=== PATIENT | male | born 1945 | race Caucasian/White ===

== ENCOUNTER → 2018-03-04 | Outpatient (CLI) | payer MEDICARE | END | disposition home or self-care (01) | LOC: LAB EV 21:00 | DX: R19.7 Diarrhea, unspecified (principal) | CPT/HCPCS: 87015; 87045; 87046; 87205; 87338; 87493; 87899 ==

== ENCOUNTER 2018-12-22 23:36 | Emergency (ER) | payer MEDICARE ==
[~2018-12-22] VITALS: Ht 175.3 cm; Wt 81.7 kg
[2018-12-23] MEDS ORDERED: GLIM2 PO (00:09)
[2018-12-23 00:34] LABS: BASOPHILS ABSOLUTE AUTO 0.05 K/mm3 (0.00-0.23); BASOPHILS PERCENT AUTO 1 % (0-2); EOSINOPHILS ABSOLUTE AUTO 0.22 K/mm3 (0.00-0.68); EOSINOPHILS PERCENT AUTO 3 % (0-6); Hematocrit 42.7 % (37.0-53.0); Hemoglobin 14.1 g/dL (13.5-17.5); IMMATURE GRAN ABSOLUTE AUTO 0.02 K/mm3 (0.00-0.10); IMMATURE GRAN PERCENT AUTO 0 % (0-1); LYMPHOCYTES ABSOLUTE AUTO 3.11 K/mm3 (0.84-5.20); LYMPHOCYTES PERCENT AUTO 38 % (21-46); MONOCYTES ABSOLUTE AUTO 0.94 K/mm3 (0.16-1.47); MONOCYTES PERCENT AUTO 12 % (4-13); Mean Corpuscular Volume 91 fL (80-100); Mean Platelet Volume 9.9 fL (9.1-12.4); NEUTROPHILS ABSOLUTE AUTO 3.78 K/mm3 (1.96-9.15); NEUTROPHILS PERCENT AUTO 47 % (41-73); Platelet Count 300 K/mm3 (150-400); RDW Coefficient Variation 13.2 % (11.7-14.2); RDW Standard Deviation 44.1 fL (35.1-46.3); White Blood Cell Count 8.12 K/mm3 (4.00-11.30)
[2018-12-23 00:43] LABS: Source, Urine Clean Catch
[2018-12-23 00:45] LABS: Bilirubin, Urine Neg (Neg); Blood, Urine 2+ (Neg); Glucose Qualitative, Urine Neg (Neg); Ketones, Urine Neg (Neg); Leukocyte Esterase, Urine Neg (Neg); Nitrite, Urine Neg (Neg); Protein, Urine Neg (Neg); Specific Gravity, Urine 1.015 (1.003-1.022); Urobilinogen, Urine 1+ (Normal)
[2018-12-23 00:49] LABS: Appearance, Urine Clear (Clear); Color, Urine Yellow (P-Yellow)
[2018-12-23 00:51] LABS: Alanine Aminotransfer (ALT/SGP 25 U/L (12-78); Albumin, Blood 4.2 g/dL (3.4-5.0); Albumin/Globulin Ratio 1.2 (0.8-1.8); Alk Phos 49 U/L (50-136); Anion Gap 12 mmol/L (6-16); Aspartate Aminotrans (AST/SGOT 12 U/L (12-37); Bilirubin, Total 0.4 mg/dL (0.1-1.0); Blood Urea Nitrogen 25 mg/dL (8-24); Bun/Creatinine Ratio 24.5 (12.0-20.0); CO2, Blood 23 mmol/L (21-32); Calcium, Blood 9.4 mg/dL (8.5-10.1); Chloride, Blood 106 mmol/L (98-108); Creatinine, Blood 1.02 mg/dL (0.60-1.20); Globulin, Blood 3.5 g/dL (2.2-4.0); Glomerular Filtration Rate >60 (60-); Glucose, Blood 164 mg/dL (70-99); Potassium, Blood 4.3 mmol/L (3.5-5.5); Sodium, Blood 141 mmol/L (136-145); Total Protein, Blood 7.7 g/dL (6.4-8.2)
[2018-12-23 00:53] LABS: Bacteria Few /hpf; Calcium Oxalate Crystals Few /hpf; Squamous Epithelial Cells Not Seen /hpf (Few); White Blood Cells, Urine 0-2 /hpf (0-5)
[2018-12-23] MEDS ORDERED: Flomax0.4 MG PO (02:07)
[2018-12-23] MEDS ORDERED: ONDA4ODT MM (02:07)
[2018-12-23] MEDS ORDERED: Percocet 5-3251 EACH PO (02:07)
== END 2018-12-23 02:20 | disposition home or self-care (01) ==
LOC: ER 23:36
PROVIDERS: Physician Assistant
DX: N13.2 Hydronephrosis with renal and ureteral calculous obstruction (principal); Z88.8 Allergy status to other drugs, medicaments and biological substances; Z79.899 Other long term (current) drug therapy; E11.9 Type 2 diabetes mellitus without complications
CPT/HCPCS: 36415; 74176; 80053; 81001; 83690; 85025; 96374; 96375; 96376; 99284-25; A9270-GY; J1170; J2405

== ENCOUNTER → 2019-02-04 | Outpatient (CLI) | payer MEDICARE ==
[~2019-02-04] MED LIST: Flomax0.4 MG PO; GLIM2 PO; ONDA4ODT MM; Percocet 5-3251 EACH PO
== END | disposition home or self-care (01) ==
LOC: LAB SRC 12:45 → LAB SHORT 12:45
DX: E11.65 Type 2 diabetes mellitus with hyperglycemia (principal)
CPT/HCPCS: 82043

== ENCOUNTER → 2019-11-05 | Outpatient (CLI) | payer MEDICARE ==
[2019-11-05 15:40] LABS: Bilirubin, Urine Neg (Neg); Blood, Urine 5+ (Neg); Glucose Qualitative, Urine 4+ (Neg); Ketones, Urine Neg (Neg); Leukocyte Esterase, Urine Neg (Neg); Nitrite, Urine Neg (Neg); Protein, Urine 1+ (Neg); Specific Gravity, Urine 1.025 (1.003-1.022); Urobilinogen, Urine NORM (Normal)
[2019-11-05 15:53] LABS: Appearance, Urine Turbid (Clear); Color, Urine Yellow (P-Yellow)
[2019-11-05 15:54] LABS: White Blood Cells, Urine 0-2 /hpf (0-5)
[2019-11-05 15:55] LABS: Amorphous Heavy (0-Heavy); Bacteria Few /hpf; Calcium Oxalate Crystals Few /hpf; Red Blood Cells, Urine 25-50 /hpf (0-2); Squamous Epithelial Cells Few /hpf (Few)
== END | disposition home or self-care (01) ==
LOC: LAB 14:05 → LAB SHORT 14:05
PROVIDERS: Family Medicine
DX: N50.819 Testicular pain, unspecified (principal)
CPT/HCPCS: 81001

== ENCOUNTER 2022-05-14 05:04 | Emergency (ER) | payer MEDICARE ==
[~2022-05-14] VITALS: Ht 177.8 cm; Wt 77.1 kg
[2022-05-14 06:19] LABS: Source, Urine Clean Catch
[2022-05-14 06:32] LABS: BASOPHILS ABSOLUTE AUTO 0.03 K/mm3 (0.00-0.23); BASOPHILS PERCENT AUTO 0 % (0-2); EOSINOPHILS ABSOLUTE AUTO 0.01 K/mm3 (0.00-0.68); EOSINOPHILS PERCENT AUTO 0 % (0-6); Hemoglobin 14.2 g/dL (13.5-17.5); IMMATURE GRAN ABSOLUTE AUTO 0.04 K/mm3 (0.00-0.10); IMMATURE GRAN PERCENT AUTO 0 % (0-1); LYMPHOCYTES ABSOLUTE AUTO 0.81 K/mm3 (0.84-5.20); LYMPHOCYTES PERCENT AUTO 9 % (21-46); MONOCYTES ABSOLUTE AUTO 0.32 K/mm3 (0.16-1.47); MONOCYTES PERCENT AUTO 4 % (4-13); Mean Corpuscular HGB 29.5 pg (26.0-34.0); Mean Corpuscular HGB Conc 33.8 g/dL (31.5-36.5); Mean Corpuscular Volume 87 fL (80-100); Mean Platelet Volume 9.6 fL (9.1-12.4); NEUTROPHILS ABSOLUTE AUTO 7.97 K/mm3 (1.96-9.15); NEUTROPHILS PERCENT AUTO 87 % (41-73); Platelet Count 289 K/mm3 (150-400); RDW Coefficient Variation 12.5 % (11.7-14.2); Red Blood Cell Count 4.82 M/mm3 (4.30-5.90); White Blood Cell Count 9.18 K/mm3 (4.00-11.30)
[2022-05-14 06:38] LABS: Appearance, Urine Clear (Clear); Bilirubin, Urine Neg (Neg); Blood, Urine 1+ (Neg); Color, Urine Yellow (P-Yellow); Glucose Qualitative, Urine 4+ (Neg); Ketones, Urine 4+ (Neg); Leukocyte Esterase, Urine Neg (Neg); Nitrite, Urine Neg (Neg); Protein, Urine 1+ (Neg); Specific Gravity, Urine 1.025 (1.003-1.022); Urobilinogen, Urine NORM (Normal)
[2022-05-14 06:42] LABS: Albumin, Blood 4.1 g/dL (3.4-5.0); Albumin/Globulin Ratio 1.1 (0.8-1.8); Bilirubin, Total 0.8 mg/dL (0.1-1.0); Calcium, Blood 8.7 mg/dL (8.5-10.1); Creatinine, Blood 0.88 mg/dL (0.60-1.20); Globulin, Blood 3.8 g/dL (2.2-4.0); Total Protein, Blood 7.9 g/dL (6.4-8.2)
[2022-05-14 07:01] LABS: Bacteria Rare /hpf; Red Blood Cells, Urine 0-2 /hpf (0-2); Squamous Epithelial Cells Rare /hpf (Few); White Blood Cells, Urine 0-2 /hpf (0-5)
[2022-05-14] MEDS ORDERED: DOC250 PO (11:03)
[2022-05-14] MEDS ORDERED: ONDA4ODT MM (11:03)
== END 2022-05-14 11:38 | disposition home or self-care (01) ==
LOC: ER 05:04
PROVIDERS: Student in an Organized Health Care Education/Training Program
DX: R11.2 Nausea with vomiting, unspecified (principal); R10.31 Right lower quadrant pain; K59.00 Constipation, unspecified; Z79.84 Long term (current) use of oral hypoglycemic drugs; Z79.899 Other long term (current) drug therapy; Z88.6 Allergy status to analgesic agent
CPT/HCPCS: 36415; 71045; 74176; 80053; 81001; 84484; 85025; 93005; 93010; A9270; J2405; J2765; J3010; J7030

== ENCOUNTER 2022-05-16 09:01 | Emergency (ER) | payer MEDICARE ==
[~2022-05-16] VITALS: Ht 175.3 cm; Wt 81.7 kg
[~2022-05-16 09:01] MED LIST changes: +DOC250 PO
[2022-05-16 09:54] LABS: BASOPHILS ABSOLUTE AUTO 0.02 K/mm3 (0.00-0.23); BASOPHILS PERCENT AUTO 0 % (0-2); EOSINOPHILS ABSOLUTE AUTO 0.02 K/mm3 (0.00-0.68); EOSINOPHILS PERCENT AUTO 0 % (0-6); Hematocrit 44.7 % (37.0-53.0); Hemoglobin 15.2 g/dL (13.5-17.5); IMMATURE GRAN ABSOLUTE AUTO 0.06 K/mm3 (0.00-0.10); IMMATURE GRAN PERCENT AUTO 1 % (0-1); LYMPHOCYTES ABSOLUTE AUTO 1.09 K/mm3 (0.84-5.20); LYMPHOCYTES PERCENT AUTO 9 % (21-46); MONOCYTES ABSOLUTE AUTO 1.44 K/mm3 (0.16-1.47); MONOCYTES PERCENT AUTO 12 % (4-13); Mean Corpuscular HGB 29.3 pg (26.0-34.0); Mean Corpuscular Volume 86 fL (80-100); Mean Platelet Volume 9.8 fL (9.1-12.4); NEUTROPHILS ABSOLUTE AUTO 9.82 K/mm3 (1.96-9.15); NEUTROPHILS PERCENT AUTO 79 % (41-73); Platelet Count 326 K/mm3 (150-400); RDW Coefficient Variation 12.7 % (11.7-14.2); RDW Standard Deviation 39.8 fL (35.1-46.3); Red Blood Cell Count 5.19 M/mm3 (4.30-5.90); White Blood Cell Count 12.45 K/mm3 (4.00-11.30)
[2022-05-16 10:13] LABS: Magnesium, Blood 2.5 mg/dL (1.6-2.4)
[2022-05-16 10:14] LABS: Albumin, Blood 3.6 g/dL (3.4-5.0); Bilirubin, Total 0.8 mg/dL (0.1-1.0); Bun/Creatinine Ratio 21.4 (12.0-20.0); Calcium, Blood 8.6 mg/dL (8.5-10.1); Creatinine, Blood 1.03 mg/dL (0.60-1.20); Globulin, Blood 3.7 g/dL (2.2-4.0); Potassium, Blood 4.2 mmol/L (3.5-5.5); Total Protein, Blood 7.3 g/dL (6.4-8.2)
[2022-05-16] MEDS ORDERED: METO25 PO (13:04)
== END 2022-05-16 13:44 | disposition home or self-care (01) ==
LOC: ER 09:01
PROVIDERS: Student in an Organized Health Care Education/Training Program
DX: I48.91 Unspecified atrial fibrillation (principal); E11.9 Type 2 diabetes mellitus without complications; Z79.84 Long term (current) use of oral hypoglycemic drugs; Z87.891 Personal history of nicotine dependence; Z88.6 Allergy status to analgesic agent
CPT/HCPCS: 36415; 71045; 80053; 83735; 83880; 84484; 85025; A9270; J7030

== ENCOUNTER 2023-01-19 03:44 | Observation (INO) | payer MEDICARE ==
[~2023-01-19] VITALS: Ht 170.2 cm; Wt 85.0 kg
[~2023-01-19 03:44] MED LIST changes: +METO25 PO
[2023-01-19 04:03] LABS: BASOPHILS ABSOLUTE AUTO 0.07 K/mm3 (0.00-0.23); BASOPHILS PERCENT AUTO 1 % (0-2); EOSINOPHILS ABSOLUTE AUTO 0.29 K/mm3 (0.00-0.68); EOSINOPHILS PERCENT AUTO 4 % (0-6); Hematocrit 40.9 % (37.0-53.0); Hemoglobin 13.6 g/dL (13.5-17.5); IMMATURE GRAN ABSOLUTE AUTO 0.03 K/mm3 (0.00-0.10); IMMATURE GRAN PERCENT AUTO 0 % (0-1); LYMPHOCYTES ABSOLUTE AUTO 3.33 K/mm3 (0.84-5.20); LYMPHOCYTES PERCENT AUTO 42 % (21-46); MONOCYTES ABSOLUTE AUTO 0.92 K/mm3 (0.16-1.47); MONOCYTES PERCENT AUTO 12 % (4-13); Mean Corpuscular HGB 29.6 pg (26.0-34.0); Mean Corpuscular HGB Conc 33.3 g/dL (31.5-36.5); Mean Corpuscular Volume 89 fL (80-100); Mean Platelet Volume 9.5 fL (9.1-12.4); NEUTROPHILS ABSOLUTE AUTO 3.37 K/mm3 (1.96-9.15); NEUTROPHILS PERCENT AUTO 42 % (41-73); Platelet Count 294 K/mm3 (150-400); RDW Coefficient Variation 13.2 % (11.7-14.2); RDW Standard Deviation 42.9 fL (35.1-46.3); White Blood Cell Count 8.01 K/mm3 (4.00-11.30)
[2023-01-19 04:20] LABS: Alanine Aminotransfer (ALT/SGP 25 U/L (12-78); Albumin, Blood 3.8 g/dL (3.4-5.0); Albumin/Globulin Ratio 1.1 (0.8-1.8); Alk Phos 44 U/L (50-136); Anion Gap 4 mmol/L (6-16); Aspartate Aminotrans (AST/SGOT 16 U/L (12-37); Bilirubin, Total 0.2 mg/dL (0.1-1.0); Blood Urea Nitrogen 22 mg/dL (8-24); Bun/Creatinine Ratio 21.4 (12.0-20.0); CO2, Blood 26 mmol/L (21-32); Calcium, Blood 9.5 mg/dL (8.5-10.1); Chloride, Blood 108 mmol/L (98-108); Creatinine, Blood 1.03 mg/dL (0.60-1.20); Ethanol (Alcohol), Blood, Med <3 mg/dL; Globulin, Blood 3.6 g/dL (2.2-4.0); Glomerular Filtration Rate 75 (60-); Glucose, Blood 142 mg/dL (70-99); Potassium, Blood 4.1 mmol/L (3.5-5.5); Sodium, Blood 138 mmol/L (136-145); Total Protein, Blood 7.4 g/dL (6.4-8.2)
[2023-01-19 06:53] VITALS: BP 168/84
[2023-01-19] MEDS ORDERED: GLIP2.5ER PO (08:07)
[2023-01-19 09:28] LABS: Source, Urine Clean Catch
[2023-01-19 09:32] LABS: Appearance, Urine Clear (Clear); Bilirubin, Urine Neg (Neg); Blood, Urine Neg (Neg); Color, Urine Yellow (P-Yellow); Glucose Qualitative, Urine Neg (Neg); Ketones, Urine Neg (Neg); Leukocyte Esterase, Urine Neg (Neg); Nitrite, Urine Neg (Neg); Protein, Urine Neg (Neg); Specific Gravity, Urine 1.015 (1.003-1.022); Urobilinogen, Urine NORM (Normal)
[2023-01-19 16:49] VITALS: BP 155/77
--- NOTE | 2023-01-19 17:59 | NUR ---
SHIFT SUMMARY: PT A&O X4. PT MOSTLY PLEASANT THIS SHIFT. PT ANXIOUS AND ANGRY THIS AFTERNOON DUE TO "NOT GETTING ANYTHING DONE." PHYSICAL THERAPY REFUSED TO SEE PT DUE TO HYPERTENSION AND NOT WANTING TO MAKE MATTERS WORSE. THIS RN WAS NOT NOTIFIED BY PHYSICAL THERAPY AND PT DID NOT RECEIVE PT EVAL. PT UPSET BY THIS AND ATTEMPTING TO GET OUT OF BED TO LEAVE AMA. DR. MCMAHON TALKED TO PT AND WAS ABLE TO RELAX AND WAIT UNTIL TOMORROW TO RECEIVE PT/OT EVAL. D/C MEDICATIONS IN D/C PACKET. NECK AND HEAD CTA RESULTS IN [facility]. PT GIVEN RESULTS BY DR. MCMAHON WHO STARTED PT ON ANTICOAGULANTS AND STRONGLY RECOMMENDED PT STAY UNTIL PT EVAL DONE. PT ABLE TO STAND WITH DOCTOR AND THIS RN AT BEDSIDE. PT DIZZY AND UNSTEADY ON FEET. PT AWARE IF WANTING TO LEAVE AMA HE WOULD NEED TO RETURN TO ER IF SYMPTOMS ARISE. PT IN BEDSIDE THROUGHOUT DAY. BROUGHT IN HOME MEDICATIONS WHICH INCLUDED METOPROLOL, GLIPIZIDE, AND HERBAL MEDICATIONS. PT STRONGLY ADVISED TO D/C GLIPIZIDE. PT CURRENTLY PLEASANT EATING DINNER IN BED W/O COMPLAINTS. CALL LIGHT IN REACH. BED IN LOWEST POSITION. WILL CONTINUE TO MONITOR.
[2023-01-19 19:46] VITALS: BP 155/78
[2023-01-20 05:02] LABS: BASOPHILS ABSOLUTE AUTO 0.04 K/mm3 (0.00-0.23); BASOPHILS PERCENT AUTO 1 % (0-2); EOSINOPHILS ABSOLUTE AUTO 0.16 K/mm3 (0.00-0.68); EOSINOPHILS PERCENT AUTO 3 % (0-6); Hematocrit 40.1 % (37.0-53.0); Hemoglobin 13.6 g/dL (13.5-17.5); IMMATURE GRAN ABSOLUTE AUTO 0.01 K/mm3 (0.00-0.10); IMMATURE GRAN PERCENT AUTO 0 % (0-1); LYMPHOCYTES ABSOLUTE AUTO 1.62 K/mm3 (0.84-5.20); LYMPHOCYTES PERCENT AUTO 28 % (21-46); MONOCYTES ABSOLUTE AUTO 0.66 K/mm3 (0.16-1.47); MONOCYTES PERCENT AUTO 12 % (4-13); Mean Corpuscular HGB 29.4 pg (26.0-34.0); Mean Corpuscular HGB Conc 33.9 g/dL (31.5-36.5); Mean Corpuscular Volume 87 fL (80-100); Mean Platelet Volume 9.2 fL (9.1-12.4); NEUTROPHILS ABSOLUTE AUTO 3.24 K/mm3 (1.96-9.15); NEUTROPHILS PERCENT AUTO 57 % (41-73); Platelet Count 254 K/mm3 (150-400); RDW Coefficient Variation 13.2 % (11.7-14.2); RDW Standard Deviation 41.6 fL (35.1-46.3); Red Blood Cell Count 4.62 M/mm3 (4.30-5.90); White Blood Cell Count 5.73 K/mm3 (4.00-11.30)
[2023-01-20 05:22] LABS: Albumin, Blood 3.7 g/dL (3.4-5.0); Albumin/Globulin Ratio 1.1 (0.8-1.8); Bilirubin, Total 0.5 mg/dL (0.1-1.0); Bun/Creatinine Ratio 19.2 (12.0-20.0); Calcium, Blood 8.9 mg/dL (8.5-10.1); Creatinine, Blood 0.99 mg/dL (0.60-1.20); Globulin, Blood 3.4 g/dL (2.2-4.0); Potassium, Blood 4.2 mmol/L (3.5-5.5); Total Protein, Blood 7.1 g/dL (6.4-8.2)
[2023-01-20 07:10] VITALS: BP 157/85
[2023-01-20] MEDS ORDERED: METO25 PO (12:22)
[2023-01-20] MEDS ORDERED: CLOP75 PO (12:23)
[2023-01-20] MEDS ORDERED: ASPI81CH PO (12:23)
[2023-01-20] MEDS ORDERED: ATOR40TA PO (12:23)
--- NOTE | 2023-01-20 13:04 | NUR ---
DISCHARGE SUMMARY PATIENT IS ALERT AND ORIENTED. PATIENT HAS HAD NO ACUTE EVENTS THIS SHIFT. VITAL SIGNS REVIEWED. PATIENT WAS SEEN BY PHYSICAL THERAPY AND CLEARED FOR HOME DISCHARGE. PATIENT IS BEING DISCHARGED HOME WITH TRANSPORTING. PATIENT WAS WHEELED OUT BY THIS RN TO TRANSPORTING.
== END 2023-01-20 12:38 | disposition home or self-care (01) ==
LOC: ER 03:44 → MEDS 03:45 → ENPENDDIS 01-20 12:04 → MEDS 01-20 12:38
PROVIDERS: Student in an Organized Health Care Education/Training Program; ADMIT Internal Medicine
DX: G45.9 Transient cerebral ischemic attack, unspecified (principal); I66.21 Occlusion and stenosis of right posterior cerebral artery; I65.01 Occlusion and stenosis of right vertebral artery; I48.0 Paroxysmal atrial fibrillation; I10 Essential (primary) hypertension; E11.9 Type 2 diabetes mellitus without complications; Z88.6 Allergy status to analgesic agent; Z87.891 Personal history of nicotine dependence; Z79.82 Long term (current) use of aspirin; Z79.84 Long term (current) use of oral hypoglycemic drugs
CPT/HCPCS: 36415; 70450; 70496; 70498; 80053; 81003; 82947; 85025; 93005; 93010; 93306; 97116; 97162; 97530; 99285-25; A9270; G0378; G0480; Q9967

== ENCOUNTER 2023-01-24 23:22 | Emergency (ER) | payer MEDICARE ==
[~2023-01-24] VITALS: Ht 175.3 cm; Wt 81.7 kg
[~2023-01-24 23:22] MED LIST changes: +ASPI81CH PO; +ATOR40TA PO; +CLOP75 PO; +GLIP2.5ER PO
[2023-01-25] MEDS ORDERED: AFRIN15 M6 (03:47)
[2023-01-25 04:18] VITALS: BP 169/84
== END 2023-01-25 04:19 | disposition home or self-care (01) ==
LOC: ER 23:22
DX: R04.0 Epistaxis (principal); T45.525A Adverse effect of antithrombotic drugs, initial encounter; E11.9 Type 2 diabetes mellitus without complications; Z88.6 Allergy status to analgesic agent; Z79.82 Long term (current) use of aspirin; Z79.02 Long term (current) use of antithrombotics/antiplatelets; X58.XXXA Exposure to other specified factors, initial encounter
CPT/HCPCS: 99283

== ENCOUNTER → 2024-04-05 | Outpatient (CLI) | payer MEDICARE ==
[~2024-04-05] MED LIST changes: +AFRIN15 M6
== END ==
LOC: LAB SHORT 14:54 → LAB 14:54
DX: L72.3 Sebaceous cyst (principal); L08.9 Local infection of the skin and subcutaneous tissue, unspecified
CPT/HCPCS: 87070; 87075; 87205